=== PATIENT | male | born 1965 | race Two or more races ===

== ENCOUNTER 2024-05-31 19:35 | Emergency (ER) | payer BC | END 2024-05-31 23:05 | disposition left against medical advice (07) | LOC: ER 19:37 | DX: T85.9XXA Unspecified complication of internal prosthetic device, implant and graft, initial encounter (principal); Z53.21 Procedure and treatment not carried out due to patient leaving prior to being seen by health care provider; Y84.8 Other medical procedures as the cause of abnormal reaction of the patient, or of later complication, without mention of misadventure at the time of the procedure; Y92.89 Other specified places as the place of occurrence of the external cause ==